=== PATIENT | male | born 1950 | race Caucasian/White ===

== ENCOUNTER → 2020-06-01 | Outpatient (CLI) | payer MEDICARE ==
[~2020-06-01] MED LIST: AMLO-150 PO; ASPI81TA45 PO; ATOR80TA PO; BRIM5DRO2 EACHEYE; CHLO25TA PO; CLOP75TA52 PO; LATA2.5D4 EACHEYE; LOSA100T14 PO; METO25TA91 PO
== END | disposition home or self-care (01) ==
LOC: STAR 15:40
PROVIDERS: ATTEND Surgery
DX: Z20.828 Contact with and (suspected) exposure to other viral communicable diseases (principal)
CPT/HCPCS: 87635